=== PATIENT | female | born 1955 | race Caucasian/White ===

== ENCOUNTER 2019-10-02 04:40 | Outpatient (CLI) | payer MEDICARE, BC ==
[~2019-10-02 04:40] MED LIST: ALEGRA PO; GLYB-97 PO; METF-436 PO; MULT-1074 PO; SITA100T15 PO
== END 2019-10-02 23:59 | disposition home or self-care (01) ==
LOC: DIABETIC 04:40
PROVIDERS: ATTEND Specialist
DX: E11.65 Type 2 diabetes mellitus with hyperglycemia (principal); Z79.84 Long term (current) use of oral hypoglycemic drugs
CPT/HCPCS: G0108

== ENCOUNTER 2019-10-31 03:17 | Outpatient (CLI) | payer MEDICARE, BC | END 2019-10-31 23:59 | disposition home or self-care (01) | LOC: DIABETIC 03:17 | PROVIDERS: ATTEND Specialist | DX: E11.65 Type 2 diabetes mellitus with hyperglycemia (principal) | CPT/HCPCS: G0108 ==